=== PATIENT | female | born 1985 | race African-American/Black ===

== ENCOUNTER 2018-04-08 17:27 | Inpatient (IN) | payer OTHER ==
[2018-04-08 18:27] LABS: ADD MAN DIFF? NO
[2018-04-08 18:30] LABS: BASOPHILS % 0.2 % (0.0-2.0); EOSINOPHILS % 0.2 % (0.0-7.0); HEMATOCRIT 33.5 % (37.0-47.0); HEMOGLOBIN 11.1 g/dl (12.0-16.0); LYMPHOCYTES # 2.2 10^3/ul (0.8-2.9); LYMPHOCYTES % 38.9 % (15.0-51.0); MEAN CORPUSCULAR HGB CONC 33.1 g/dl (32.0-37.0); MEAN CORPUSCULAR VOLUME 81.5 fl (82.0-101.0); MEAN PLATELET VOLUME 10.5 fl (7.4-10.4); MONOCYTE # 0.8 10^3/ul (0.3-0.9); NEUTROPHIL # 2.7 10^3/ul (1.6-7.5); NEUTROPHILS % 46.5 % (39.0-77.0); PLATELET COUNT 229 10^3/UL (140-415); RED BLOOD COUNT 4.11 10^6/ul (4.20-5.40); RED CELL DISTRIBUTION WIDTH 12.9 % (11.5-14.5)
[2018-04-08 18:30] LABS: WHITE BLOOD COUNT 5.7 10^3/ul (4.8-10.8)
[2018-04-08 18:38] LABS: ADD UMIC YES; UR ASCORBIC ACID NEGATIVE (NEGATIVE); UR BILIRUBIN (Dip) NEGATIVE (NEGATIVE); UR BLOOD (Dip) 1+ mg/dL (NEGATIVE); UR CLARITY SLIGHTLY CLOUDY (CLEAR); UR COLOR YELLOW (YELLOW); UR GLUCOSE (Dip) NEGATIVE (NEGATIVE); UR KETONES (Dip) 1+ mg/dL (NEGATIVE); UR LEUKOCYTE ESTERASE (Dip) NEGATIVE Leu/ul (NEGATIVE); UR MUCUS FEW /HPF (NONE SEEN); UR NITRITE (Dip) NEGATIVE (NEGATIVE); UR RBC 2 /HPF (0-5); UR SPECIFIC GRAVITY (Dip) 1.021 (1.003-1.030); UR SQUAMOUS EPITHELIAL CELL FEW /HPF (FEW); UR TOTAL PROTEIN (Dip) NEGATIVE (NEGATIVE); UR UROBILINOGEN (Dip) NEGATIVE (NEGATIVE); UR WBC 1 /HPF (0-5)
[2018-04-08] MEDS: SODIUM CHLORIDE 0.9% 1L BAG IV* (18:39)
[2018-04-08 19:03] LABS: LACTIC ACID 1.4 mmol/L (0.5-2.0)
[2018-04-08 19:05] LABS: ALANINE AMINOTRANSFERASE 34 IU/L (13-69); ALBUMIN 3.7 g/dl (3.3-4.9); ALBUMIN/GLOBULIN RATIO 1.19; ALKALINE PHOSPHATASE 90 IU/L (42-121); ANION GAP 11 (8-16); ASPARTATE AMINO TRANSFERASE 22 IU/L (15-46); BILIRUBIN,INDIRECT 0.6 mg/dl (0-1.1); BILIRUBIN,TOTAL 0.6 mg/dl (0.2-1.3); BLOOD UREA NITROGEN 6 mg/dl (7-20); CALCIUM 9.7 mg/dl (8.4-10.2); CARBON DIOXIDE 22 mmol/L (21-31); CHLORIDE 110 mmol/L (97-110); CREATININE 0.47 mg/dl (0.44-1.00); GLUCOSE 97 mg/dl (70-220); POTASSIUM 4.4 mmol/L (3.5-5.1); SODIUM 139 mmol/L (135-144); TOTAL PROTEIN 6.8 g/dl (6.1-8.1)
[2018-04-08 19:09] LABS: INR 1.09; PROTIME 14.3 Sec (11.9-14.9); PT RATIO 1.1
[2018-04-08 19:18] LABS: TROPONIN-I < 0.010 ng/ml (0.000-0.120)
[2018-04-08 19:24] LABS: PARTIAL THROMBOPLASTIN TIME 28.1 Sec (25.0-35.0)
[2018-04-08 21:09] LABS: BENZODIAZEPINES Positive (NEGATIVE)
[2018-04-08 21:10] LABS: AMPHETAMINE/METHAMPHETAMINE Negative (NEGATIVE); BARBITURATES Negative (NEGATIVE); CANNABINOIDS Positive (NEGATIVE); COCAINE Negative (NEGATIVE); OPIATES Negative (NEGATIVE)
[2018-04-08] MEDS: ONDANSETRON 4 MG INJ IV ×2 (21:37→23:02)
[2018-04-08] MEDS ORDERED: DOCUSATE SODIUM 100 MG CAP PO (22:00)
[2018-04-08] MEDS ORDERED: ACETAMINOPHEN 325 MG TAB PO (22:00)
[2018-04-08] MEDS ORDERED: NACL 0.9% 3 ML SYG IV (22:00)
[2018-04-08] MEDS ORDERED: BISACODYL (EC) 5 MG TAB PO (22:00)
[2018-04-09 00:19] LABS: CREATINE KINASE 22 IU/L (23-200)
[2018-04-09 00:37] LABS: CK-MB < 0.22 ng/ml (0.0-2.4); TROPONIN-I < 0.010 ng/ml (0.000-0.120)
[2018-04-09] MEDS: METOCLOPRAMIDE 10 MG INJ IV ×3 (01:15→11:29)
[2018-04-09] MEDS ORDERED: ONDANSETRON 4 MG INJ IV (01:30)
[2018-04-09 07:51] LABS: ADD MAN DIFF? NO
[2018-04-09 07:56] LABS: BASOPHILS % 0.2 % (0.0-2.0); EOSINOPHILS % 0.7 % (0.0-7.0); HEMATOCRIT 29.9 % (37.0-47.0); HEMOGLOBIN 9.8 g/dl (12.0-16.0); LYMPHOCYTES # 2.2 10^3/ul (0.8-2.9); LYMPHOCYTES % 48.1 % (15.0-51.0); MEAN CORPUSCULAR HEMOGLOBIN 26.8 pg (29.0-33.0); MEAN CORPUSCULAR HGB CONC 32.8 g/dl (32.0-37.0); MEAN CORPUSCULAR VOLUME 81.9 fl (82.0-101.0); MEAN PLATELET VOLUME 10.6 fl (7.4-10.4); MONOCYTE # 0.7 10^3/ul (0.3-0.9); MONOCYTES % 15.2 % (0.0-11.0); NEUTROPHIL # 1.6 10^3/ul (1.6-7.5); NEUTROPHILS % 35.8 % (39.0-77.0); PLATELET COUNT 202 10^3/UL (140-415); RED BLOOD COUNT 3.65 10^6/ul (4.20-5.40); RED CELL DISTRIBUTION WIDTH 12.6 % (11.5-14.5)
[2018-04-09 07:56] LABS: WHITE BLOOD COUNT 4.6 10^3/ul (4.8-10.8)
[2018-04-09 08:13] LABS: HEMOGLOBIN A1C 5.1 % (0-5.9)
[2018-04-09 08:18] LABS: D-DIMER 262.82 ng/ml (<460)
[2018-04-09 08:19] LABS: ALANINE AMINOTRANSFERASE 30 IU/L (13-69); ALBUMIN 2.9 g/dl (3.3-4.9); ALBUMIN/GLOBULIN RATIO 1.03; ALKALINE PHOSPHATASE 68 IU/L (42-121); ANION GAP 8 (8-16); ASPARTATE AMINO TRANSFERASE 20 IU/L (15-46); BILIRUBIN,INDIRECT 0.5 mg/dl (0-1.1); BILIRUBIN,TOTAL 0.5 mg/dl (0.2-1.3); BLOOD UREA NITROGEN 7 mg/dl (7-20); CALCIUM 9.3 mg/dl (8.4-10.2); CARBON DIOXIDE 20 mmol/L (21-31); CHLORIDE 114 mmol/L (97-110); CHOL/HDL RATIO 2.9 RATIO; CHOLESTEROL 79 mg/dl (100-200); CREATININE 0.51 mg/dl (0.44-1.00); GLUCOSE 92 mg/dl (70-220); HDL CHOLESTEROL 27 mg/dl (34-82); LDL CHOLESTEROL,CALCULATED 38 mg/dl; MAGNESIUM 1.5 mg/dl (1.7-2.5); POTASSIUM 4.1 mmol/L (3.5-5.1); SODIUM 138 mmol/L (135-144); TOTAL PROTEIN 5.7 g/dl (6.1-8.1); TRIGLYCERIDES 70 mg/dl (0-149)
[2018-04-09 08:20] LABS: IRON 61 ug/dl (35-150)
[2018-04-09 08:23] LABS: CREATINE KINASE 23 IU/L (23-200)
[2018-04-09 08:29] LABS: % IRON SATURATION 21 % SAT (22-52); TOTAL IRON BINDING CAPACITY 292 ug/dl (241-421)
[2018-04-09 08:30] LABS: CK-MB < 0.22 ng/ml (0.0-2.4); TROPONIN-I < 0.010 ng/ml (0.000-0.120)
[2018-04-09 08:48] LABS: THYROID STIMULATING HORMONE < 0.015 MIU/L (0.465-4.680)
== END 2018-04-09 14:54 | disposition home or self-care (01) | DRG 780 ==
LOC: E/R 17:27 → TEL 21:41
DX: O47.02 False labor before 37 completed weeks of gestation, second trimester (principal); O20.9 Hemorrhage in early pregnancy, unspecified; O10.911 Unspecified pre-existing hypertension complicating pregnancy, first trimester; O99.321 Drug use complicating pregnancy, first trimester; R00.0 Tachycardia, unspecified; O21.9 Vomiting of pregnancy, unspecified; F12.90 Cannabis use, unspecified, uncomplicated; Z3A.01 Less than 8 weeks gestation of pregnancy
CPT/HCPCS: 36415; 76801; 76817; 80053; 80061; 80307; 81001; 81025; 82550; 82553; 83036; 83540; 83605; 83735; 84443; 84484; 84702; 85025; 85378; 85610; 85730; 86850; 86900; 86901; 87040; 87086; 93005; 93306; 93970; 96374; 96376; 99285-25

== ENCOUNTER 2018-04-17 17:56 | Emergency (ER) | payer OTHER ==
[2018-04-17] MEDS: SOD CHLORIDE 0.9% 1,000 ML IV ×2 (20:48→23:10)
[2018-04-17 21:01] LABS: ADD MAN DIFF? NO
[2018-04-17 21:06] LABS: WHITE BLOOD COUNT 6.6 10^3/ul (4.8-10.8)
[2018-04-17 21:06] LABS: BASOPHILS % 0.3 % (0.0-2.0); EOSINOPHILS % 0.2 % (0.0-7.0); HEMOGLOBIN 11.9 g/dl (12.0-16.0); LYMPHOCYTES # 2.5 10^3/ul (0.8-2.9); LYMPHOCYTES % 37.8 % (15.0-51.0); MEAN CORPUSCULAR HEMOGLOBIN 26.5 pg (29.0-33.0); MEAN CORPUSCULAR HGB CONC 33.1 g/dl (32.0-37.0); MEAN CORPUSCULAR VOLUME 80.2 fl (82.0-101.0); MEAN PLATELET VOLUME 10.6 fl (7.4-10.4); MONOCYTE # 0.7 10^3/ul (0.3-0.9); MONOCYTES % 10.9 % (0.0-11.0); NEUTROPHIL # 3.3 10^3/ul (1.6-7.5); NEUTROPHILS % 50.5 % (39.0-77.0); PLATELET COUNT 264 10^3/UL (140-415); RED BLOOD COUNT 4.49 10^6/ul (4.20-5.40); RED CELL DISTRIBUTION WIDTH 12.4 % (11.5-14.5)
[2018-04-17 21:28] LABS: ALANINE AMINOTRANSFERASE 31 IU/L (13-69); ALBUMIN 4.3 g/dl (3.3-4.9); ALBUMIN/GLOBULIN RATIO 1.07; ALKALINE PHOSPHATASE 108 IU/L (42-121); ANION GAP 16 (8-16); ASPARTATE AMINO TRANSFERASE 22 IU/L (15-46); BILIRUBIN,INDIRECT 0.8 mg/dl (0-1.1); BILIRUBIN,TOTAL 0.8 mg/dl (0.2-1.3); BLOOD UREA NITROGEN 9 mg/dl (7-20); CALCIUM 10.1 mg/dl (8.4-10.2); CARBON DIOXIDE 21 mmol/L (21-31); CHLORIDE 105 mmol/L (97-110); GLUCOSE 79 mg/dl (70-220); POTASSIUM 4.4 mmol/L (3.5-5.1); SODIUM 138 mmol/L (135-144); TOTAL PROTEIN 8.3 g/dl (6.1-8.1)
[2018-04-17 21:32] LABS: D-DIMER 348.96 ng/ml (<460)
[2018-04-17 21:48] LABS: TROPONIN-I < 0.012 ng/ml (0.000-0.120)
[2018-04-17 22:16] LABS: ADD UMIC YES; UR ASCORBIC ACID NEGATIVE (NEGATIVE); UR BILIRUBIN (Dip) NEGATIVE (NEGATIVE); UR BLOOD (Dip) 1+ mg/dL (NEGATIVE); UR CLARITY SLIGHTLY CLOUDY (CLEAR); UR COLOR YELLOW (YELLOW); UR GLUCOSE (Dip) NEGATIVE (NEGATIVE); UR KETONES (Dip) 1+ mg/dL (NEGATIVE); UR LEUKOCYTE ESTERASE (Dip) NEGATIVE Leu/ul (NEGATIVE); UR MUCUS MODERATE /HPF (NONE SEEN); UR NITRITE (Dip) NEGATIVE (NEGATIVE); UR RBC 8 /HPF (0-5); UR SPECIFIC GRAVITY (Dip) 1.027 (1.003-1.030); UR SQUAMOUS EPITHELIAL CELL FEW /HPF (FEW); UR TOTAL PROTEIN (Dip) 1+ mg/dl (NEGATIVE); UR UROBILINOGEN (Dip) NEGATIVE (NEGATIVE); UR WBC 4 /HPF (0-5)
[2018-04-17] MEDS: HYDROCODONE/APAP (5/325) TAB PO (23:02)
== END 2018-04-18 01:50 | disposition home or self-care (01) ==
LOC: FTE 04-18 01:50
DX: O99.89 Other specified diseases and conditions complicating pregnancy, childbirth and the puerperium (principal); R07.89 Other chest pain; Z3A.01 Less than 8 weeks gestation of pregnancy
CPT/HCPCS: 80053; 81001; 84484; 85025; 85378; 93005; 93970; 99285-25

== ENCOUNTER 2018-04-28 20:55 | Emergency (ER) | payer OTHER ==
[2018-04-28] MEDS: ACETAMINOPHEN 325 MG TAB PO (23:30)
[2018-04-28 23:34] LABS: ADD MAN DIFF? NO
[2018-04-28 23:36] LABS: WHITE BLOOD COUNT 7.1 10^3/ul (4.8-10.8)
[2018-04-28 23:36] LABS: BASOPHILS % 0.1 % (0.0-2.0); EOSINOPHILS % 0.3 % (0.0-7.0); HEMOGLOBIN 11.1 g/dl (12.0-16.0); LYMPHOCYTES # 2.5 10^3/ul (0.8-2.9); LYMPHOCYTES % 35.1 % (15.0-51.0); MEAN CORPUSCULAR HEMOGLOBIN 26.1 pg (29.0-33.0); MEAN CORPUSCULAR HGB CONC 32.6 g/dl (32.0-37.0); MONOCYTE # 0.8 10^3/ul (0.3-0.9); MONOCYTES % 11.5 % (0.0-11.0); NEUTROPHIL # 3.7 10^3/ul (1.6-7.5); NEUTROPHILS % 52.6 % (39.0-77.0); PLATELET COUNT 260 10^3/UL (140-415); RED BLOOD COUNT 4.25 10^6/ul (4.20-5.40); RED CELL DISTRIBUTION WIDTH 12.5 % (11.5-14.5)
[2018-04-28 23:42] LABS: ADD UMIC YES; UR ASCORBIC ACID NEGATIVE (NEGATIVE); UR BILIRUBIN (Dip) NEGATIVE (NEGATIVE); UR BLOOD (Dip) 1+ mg/dL (NEGATIVE); UR CLARITY SLIGHTLY CLOUDY (CLEAR); UR COLOR YELLOW (YELLOW); UR GLUCOSE (Dip) NEGATIVE (NEGATIVE); UR KETONES (Dip) TRACE mg/dL (NEGATIVE); UR LEUKOCYTE ESTERASE (Dip) NEGATIVE Leu/ul (NEGATIVE); UR MUCUS MODERATE /HPF (NONE SEEN); UR NITRITE (Dip) NEGATIVE (NEGATIVE); UR RBC 6 /HPF (0-5); UR SPECIFIC GRAVITY (Dip) 1.026 (1.003-1.030); UR SQUAMOUS EPITHELIAL CELL FEW /HPF (FEW); UR TOTAL PROTEIN (Dip) NEGATIVE (NEGATIVE); UR UROBILINOGEN (Dip) NEGATIVE (NEGATIVE); UR WBC 3 /HPF (0-5)
[2018-04-29 00:02] LABS: INR 1.04; PROTIME 13.7 Sec (11.9-14.9); PT RATIO 1.1
[2018-04-29 00:03] LABS: PARTIAL THROMBOPLASTIN TIME 28.1 Sec (25.0-35.0)
[2018-04-29 00:08] LABS: ALANINE AMINOTRANSFERASE 30 IU/L (13-69); ALBUMIN 3.9 g/dl (3.3-4.9); ALBUMIN/GLOBULIN RATIO 1.25; ALKALINE PHOSPHATASE 85 IU/L (42-121); ANION GAP 15 (8-16); ASPARTATE AMINO TRANSFERASE 19 IU/L (15-46); BILIRUBIN,INDIRECT 0.5 mg/dl (0-1.1); BILIRUBIN,TOTAL 0.5 mg/dl (0.2-1.3); BLOOD UREA NITROGEN 7 mg/dl (7-20); CALCIUM 9.8 mg/dl (8.4-10.2); CARBON DIOXIDE 23 mmol/L (21-31); CHLORIDE 102 mmol/L (97-110); CREATININE 0.47 mg/dl (0.44-1.00); GLUCOSE 90 mg/dl (70-220); POTASSIUM 4.1 mmol/L (3.5-5.1); SODIUM 136 mmol/L (135-144)
[2018-04-29] MEDS: ONDANSETRON (ODT) 4 MG TAB ODT (01:07)
== END 2018-04-29 01:38 | disposition home or self-care (01) ==
LOC: FTE 04-29 01:38
DX: O26.891 Other specified pregnancy related conditions, first trimester (principal); R10.30 Lower abdominal pain, unspecified; R10.2 Pelvic and perineal pain; J45.909 Unspecified asthma, uncomplicated; O99.511 Diseases of the respiratory system complicating pregnancy, first trimester; Z3A.09 9 weeks gestation of pregnancy
CPT/HCPCS: 36415; 76801; 80053; 81001; 84702; 85025; 85610; 85730; 86900; 86901; 99284-25

== ENCOUNTER 2018-05-12 01:42 | Emergency (ER) | payer OTHER ==
[2018-05-12] MEDS: ACETAMINOPHEN 325 MG TAB PO (04:05)
[2018-05-12 05:06] LABS: ADD UMIC YES; UR ASCORBIC ACID NEGATIVE (NEGATIVE); UR BILIRUBIN (Dip) NEGATIVE (NEGATIVE); UR BLOOD (Dip) 1+ mg/dL (NEGATIVE); UR CLARITY CLOUDY (CLEAR); UR COLOR YELLOW (YELLOW); UR GLUCOSE (Dip) NEGATIVE (NEGATIVE); UR KETONES (Dip) NEGATIVE (NEGATIVE); UR LEUKOCYTE ESTERASE (Dip) NEGATIVE Leu/ul (NEGATIVE); UR MUCUS MANY /HPF (NONE SEEN); UR NITRITE (Dip) NEGATIVE (NEGATIVE); UR RBC 7 /HPF (0-5); UR SPECIFIC GRAVITY (Dip) 1.025 (1.003-1.030); UR SQUAMOUS EPITHELIAL CELL MODERATE /HPF (FEW); UR TOTAL PROTEIN (Dip) 2+ mg/dl (NEGATIVE); UR UROBILINOGEN (Dip) NEGATIVE (NEGATIVE); UR WBC 6 /HPF (0-5)
== END 2018-05-12 07:03 | disposition home or self-care (01) ==
LOC: FTE 01:42
DX: O26.891 Other specified pregnancy related conditions, first trimester (principal); R10.2 Pelvic and perineal pain; O99.511 Diseases of the respiratory system complicating pregnancy, first trimester; J45.909 Unspecified asthma, uncomplicated; Z3A.12 12 weeks gestation of pregnancy
CPT/HCPCS: 76801; 81001; 99284-25

== ENCOUNTER 2018-09-14 20:25 | Outpatient (CLI) | payer OTHER ==
[2018-09-14 21:11] LABS: ADD UMIC NO; UR ASCORBIC ACID NEGATIVE (NEGATIVE); UR BILIRUBIN (Dip) NEGATIVE (NEGATIVE); UR BLOOD (Dip) NEGATIVE (NEGATIVE); UR CLARITY CLEAR (CLEAR); UR COLOR YELLOW (YELLOW); UR GLUCOSE (Dip) NEGATIVE (NEGATIVE); UR KETONES (Dip) NEGATIVE (NEGATIVE); UR LEUKOCYTE ESTERASE (Dip) NEGATIVE Leu/ul (NEGATIVE); UR NITRITE (Dip) NEGATIVE (NEGATIVE); UR SPECIFIC GRAVITY (Dip) 1.019 (1.003-1.030); UR TOTAL PROTEIN (Dip) NEGATIVE (NEGATIVE); UR UROBILINOGEN (Dip) 1+ mg/dL (NEGATIVE)
[2018-09-14 21:25] LABS: AMPHETAMINE/METHAMPHETAMINE Negative (NEGATIVE); BARBITURATES Negative (NEGATIVE); BENZODIAZEPINES Negative (NEGATIVE); CANNABINOIDS Positive (NEGATIVE); COCAINE Negative (NEGATIVE); OPIATES Negative (NEGATIVE)
== END 2018-09-15 01:23 | disposition home or self-care (01) ==
LOC: OBT 20:25 → L-D 20:26
DX: O26.893 Other specified pregnancy related conditions, third trimester (principal); R10.30 Lower abdominal pain, unspecified; O99.283 Endocrine, nutritional and metabolic diseases complicating pregnancy, third trimester; E05.90 Thyrotoxicosis, unspecified without thyrotoxic crisis or storm; Z3A.29 29 weeks gestation of pregnancy
CPT/HCPCS: 76815; 76818; 80307; 81003; 84443

== ENCOUNTER 2018-10-05 01:11 | Outpatient (CLI) | payer OTHER ==
[2018-10-05] MEDS: TERBUTALINE 1 MG/ML INJ SC (03:02)
[2018-10-05 03:26] LABS: ADD UMIC YES; UR ASCORBIC ACID NEGATIVE (NEGATIVE); UR BACTERIA FEW /HPF (NONE SEEN); UR BILIRUBIN (Dip) NEGATIVE (NEGATIVE); UR BLOOD (Dip) NEGATIVE (NEGATIVE); UR CLARITY SLIGHTLY CLOUDY (CLEAR); UR COLOR YELLOW (YELLOW); UR GLUCOSE (Dip) NEGATIVE (NEGATIVE); UR KETONES (Dip) NEGATIVE (NEGATIVE); UR LEUKOCYTE ESTERASE (Dip) NEGATIVE Leu/ul (NEGATIVE); UR MUCUS FEW /HPF (NONE SEEN); UR NITRITE (Dip) NEGATIVE (NEGATIVE); UR RBC 2 /HPF (0-5); UR SPECIFIC GRAVITY (Dip) 1.024 (1.003-1.030); UR SQUAMOUS EPITHELIAL CELL FEW /HPF (FEW); UR TOTAL PROTEIN (Dip) 1+ mg/dl (NEGATIVE); UR UROBILINOGEN (Dip) 1+ mg/dL (NEGATIVE); UR WBC 6 /HPF (0-5)
[2018-10-05 03:34] LABS: RUPTURE FETAL MEMBRANES NEGATIVE (NEGATIVE)
[2018-10-05 03:43] LABS: FREE T3 4.68 pg/ml (2.77-5.27); FREE T4 (FREE THYROXINE) 1.48 ng/dl (0.79-2.35)
== END 2018-10-05 05:55 | disposition home or self-care (01) ==
LOC: OBT 01:11 → L-D 01:11 → OBT 05:55
DX: O26.893 Other specified pregnancy related conditions, third trimester (principal); R10.2 Pelvic and perineal pain; O13.3 Gestational [pregnancy-induced] hypertension without significant proteinuria, third trimester; Z3A.32 32 weeks gestation of pregnancy
CPT/HCPCS: 76817; 76818; 81001; 84112; 84439; 84481; 87086; 96372

== ENCOUNTER 2018-10-14 01:18 | Emergency (ER) | payer OTHER | END 2018-10-14 04:48 | disposition home or self-care (01) | LOC: FTE 01:18 | DX: O99.89 Other specified diseases and conditions complicating pregnancy, childbirth and the puerperium (principal); R13.10 Dysphagia, unspecified; O99.513 Diseases of the respiratory system complicating pregnancy, third trimester; J45.909 Unspecified asthma, uncomplicated; Z3A.33 33 weeks gestation of pregnancy | CPT/HCPCS: 70360; 99283-25 ==

== ENCOUNTER 2018-10-14 01:45 | Outpatient (CLI) | payer OTHER | END 2018-10-14 02:34 | disposition home or self-care (01) | LOC: OBT 01:45 → L-D 01:45 → OBT 02:34 | DX: O26.893 Other specified pregnancy related conditions, third trimester (principal); J02.9 Acute pharyngitis, unspecified; Z3A.33 33 weeks gestation of pregnancy | CPT/HCPCS: Z7500 ==

== ENCOUNTER 2018-10-14 16:49 | Inpatient (IN) | payer OTHER ==
[2018-10-14 18:03] LABS: ADD UMIC YES; UR ASCORBIC ACID NEGATIVE (NEGATIVE); UR BACTERIA FEW /HPF (NONE SEEN); UR BILIRUBIN (Dip) NEGATIVE (NEGATIVE); UR BLOOD (Dip) NEGATIVE (NEGATIVE); UR CLARITY SLIGHTLY CLOUDY (CLEAR); UR COLOR YELLOW (YELLOW); UR GLUCOSE (Dip) NEGATIVE (NEGATIVE); UR KETONES (Dip) TRACE mg/dL (NEGATIVE); UR LEUKOCYTE ESTERASE (Dip) TRACE Leu/ul (NEGATIVE); UR NITRITE (Dip) NEGATIVE (NEGATIVE); UR RBC 1 /HPF (0-5); UR SPECIFIC GRAVITY (Dip) 1.014 (1.003-1.030); UR TOTAL PROTEIN (Dip) NEGATIVE (NEGATIVE); UR UROBILINOGEN (Dip) NEGATIVE (NEGATIVE); UR WBC 4 /HPF (0-5)
[2018-10-14 18:50] LABS: RUPTURE FETAL MEMBRANES NEGATIVE (NEGATIVE)
[2018-10-14] MEDS ORDERED: ACETAMINOPHEN 325 MG TAB PO (20:30)
[2018-10-14] MEDS: BETAMET NA PHOS/AC(6 MG/ML) 2 ML INJ SYG IM (22:45)
[2018-10-14 23:16] LABS: T4 (THYROXINE) 21.2 ug/dl (5.5-11.0)
[2018-10-14 23:16] LABS: FREE T3 6.35 pg/ml (2.77-5.27)
[2018-10-14 23:17] LABS: FREE T4 (FREE THYROXINE) 2.09 ng/dl (0.79-2.35)
[2018-10-14 23:36] LABS: THYROID STIMULATING HORMONE < 0.015 MIU/L (0.465-4.680)
[2018-10-15 07:23] LABS: AMPHETAMINE/METHAMPHETAMINE Negative (NEGATIVE); BARBITURATES Negative (NEGATIVE); BENZODIAZEPINES Negative (NEGATIVE); COCAINE Negative (NEGATIVE); OPIATES Negative (NEGATIVE)
[2018-10-15 07:29] LABS: CANNABINOIDS Positive (NEGATIVE)
[2018-10-15] MEDS ORDERED: TERBUTALINE 1 ML (08:12)
[2018-10-15] MEDS: BETAMET NA PHOS/AC(6 MG/ML) 2 ML INJ SYG IM ×2 (08:30→23:08)
[2018-10-15] MEDS: TERBUTALINE 1 MG/ML INJ SC (08:42)
[2018-10-15] MEDS: MAGNESIUM SULFATE 4 GM/100 ML 100 ML IVPB (08:58)
[2018-10-15 12:28] LABS: FREE T4 (FREE THYROXINE) 2.42 ng/dl (0.79-2.35)
[2018-10-15 12:48] LABS: THYROID STIMULATING HORMONE < 0.015 MIU/L (0.465-4.680)
[2018-10-15] MEDS: PRENATAL VITAMIN PO ×2 (19:28→19:35)
[2018-10-15] MEDS: DOCUSATE SODIUM 100 MG CAP PO (19:35)
[2018-10-15] MEDS: FERROUS SULFATE (EC) 325 MG TAB PO (19:35)
[2018-10-15] MEDS: LACTATED RINGER'S 1,000 ML IV (19:36)
[2018-10-15] MEDS: PROPYLTHIOURACIL 50 MG TAB PO (20:58)
[2018-10-16] MEDS: LACTATED RINGER'S 1,000 ML IV ×3 (02:26→18:20)
[2018-10-16] MEDS: PRENATAL VITAMIN PO (09:05)
[2018-10-16] MEDS: DOCUSATE SODIUM 100 MG CAP PO (09:05)
[2018-10-16] MEDS: PROPYLTHIOURACIL 50 MG TAB PO ×3 (09:06→21:21)
[2018-10-16] MEDS: FERROUS SULFATE (EC) 325 MG TAB PO (09:06)
[2018-10-17] MEDS: LACTATED RINGER'S 1,000 ML IV ×3 (02:29→18:04)
[2018-10-17] MEDS: FERROUS SULFATE (EC) 325 MG TAB PO (08:40)
[2018-10-17] MEDS: PRENATAL VITAMIN PO (08:40)
[2018-10-17] MEDS: DOCUSATE SODIUM 100 MG CAP PO (08:40)
[2018-10-17] MEDS: PROPYLTHIOURACIL 50 MG TAB PO ×3 (08:40→19:55)
[2018-10-18] MEDS: LACTATED RINGER'S 1,000 ML IV (01:48)
[2018-10-18] MEDS: PRENATAL VITAMIN PO (08:55)
[2018-10-18] MEDS: DOCUSATE SODIUM 100 MG CAP PO (08:55)
[2018-10-18] MEDS: PROPYLTHIOURACIL 50 MG TAB PO (08:56)
[2018-10-18] MEDS: FERROUS SULFATE (EC) 325 MG TAB PO (09:01)
[2018-10-18 11:31] LABS: ADD MAN DIFF? NO
[2018-10-18 11:34] LABS: BASOPHILS % 0.3 % (0.0-2.0); EOSINOPHILS % 0.3 % (0.0-7.0); HEMATOCRIT 32.2 % (37.0-47.0); HEMOGLOBIN 10.5 g/dl (12.0-16.0); LYMPHOCYTES # 2.7 10^3/ul (0.8-2.9); LYMPHOCYTES % 27.1 % (15.0-51.0); MEAN CORPUSCULAR HEMOGLOBIN 27.6 pg (29.0-33.0); MEAN CORPUSCULAR HGB CONC 32.6 g/dl (32.0-37.0); MEAN CORPUSCULAR VOLUME 84.5 fl (82.0-101.0); MONOCYTE # 0.9 10^3/ul (0.3-0.9); MONOCYTES % 9.1 % (0.0-11.0); NEUTROPHIL # 6.1 10^3/ul (1.6-7.5); NEUTROPHILS % 61.4 % (39.0-77.0); PLATELET COUNT 207 10^3/UL (140-415); RED BLOOD COUNT 3.81 10^6/ul (4.20-5.40); RED CELL DISTRIBUTION WIDTH 14.6 % (11.5-14.5)
[2018-10-18 11:34] LABS: WHITE BLOOD COUNT 9.9 10^3/ul (4.8-10.8)
[2018-10-18 11:56] LABS: ALANINE AMINOTRANSFERASE 15 IU/L (13-69); ALBUMIN 3.3 g/dl (3.3-4.9); ALBUMIN/GLOBULIN RATIO 1.13; ALKALINE PHOSPHATASE 271 IU/L (42-121); ANION GAP 10 (5-13); ASPARTATE AMINO TRANSFERASE 12 IU/L (15-46); BLOOD UREA NITROGEN 11 mg/dl (7-20); CALCIUM 9.6 mg/dl (8.4-10.2); CARBON DIOXIDE 26 mmol/L (21-31); CHLORIDE 103 mmol/L (97-110); CREATININE 0.52 mg/dl (0.44-1.00); Estimated GFR > 60 mL/min (>60); GLUCOSE 82 mg/dl (70-220); SODIUM 139 mmol/L (135-144); TOTAL PROTEIN 6.2 g/dl (6.1-8.1)
[2018-10-18 12:01] LABS: PROTIME 12.2 Sec (11.9-14.9)
[2018-10-18 12:03] LABS: PARTIAL THROMBOPLASTIN TIME 24.8 Sec (23.0-35.0)
[2018-10-19 11:26] LABS: THYROID MICROSOMAL ANTIBODY 2 IU/mL (<9)
== END 2018-10-18 11:22 | disposition home or self-care (01) | DRG 833 ==
LOC: L-D 10-16 00:32 → OBT 16:49 → L-D 16:51 → OBT 20:50 → L-D 20:50
PROVIDERS: Obstetrics & Gynecology
DX: O99.283 Endocrine, nutritional and metabolic diseases complicating pregnancy, third trimester (principal); O36.5930 Maternal care for other known or suspected poor fetal growth, third trimester, not applicable or unspecified; O60.14X0 Preterm labor third trimester with preterm delivery third trimester, not applicable or unspecified; O10.913 Unspecified pre-existing hypertension complicating pregnancy, third trimester; E05.00 Thyrotoxicosis with diffuse goiter without thyrotoxic crisis or storm; O99.513 Diseases of the respiratory system complicating pregnancy, third trimester; J45.909 Unspecified asthma, uncomplicated; O76 Abnormality in fetal heart rate and rhythm complicating labor and delivery; Z87.891 Personal history of nicotine dependence; Z3A.33 33 weeks gestation of pregnancy
CPT/HCPCS: 76815; 76817; 76818; 76820; 80053; 80307; 81001; 84112; 84436; 84439; 84443; 84481; 85025; 85610; 85730; 86376; 86900; 86901; 93005

== ENCOUNTER 2018-10-20 09:24 | Outpatient (CLI) | payer OTHER ==
[2018-10-20] MEDS: LACTATED RINGER'S 1,000 ML IV (10:17)
[2018-10-20] MEDS: PROPYLTHIOURACIL 50 MG TAB PO (10:42)
== END 2018-10-20 11:15 | disposition home or self-care (01) ==
LOC: OBT 09:24 → L-D 09:25 → OBT 11:15
DX: O99.283 Endocrine, nutritional and metabolic diseases complicating pregnancy, third trimester (principal); E03.9 Hypothyroidism, unspecified; O36.8330 Maternal care for abnormalities of the fetal heart rate or rhythm, third trimester, not applicable or unspecified; Z3A.34 34 weeks gestation of pregnancy
CPT/HCPCS: 76818; 96360

== ENCOUNTER 2018-10-20 11:13 | Emergency (ER) | payer OTHER | END 2018-10-20 12:02 | disposition home or self-care (01) | LOC: FTE 11:13 | DX: O99.283 Endocrine, nutritional and metabolic diseases complicating pregnancy, third trimester (principal); R00.0 Tachycardia, unspecified; O99.513 Diseases of the respiratory system complicating pregnancy, third trimester; Z3A.34 34 weeks gestation of pregnancy | CPT/HCPCS: 93005; 99283-25 ==

== ENCOUNTER 2018-10-27 17:43 | Emergency (ER) | payer OTHER ==
[2018-10-27 18:25] LABS: ADD MAN DIFF? NO
[2018-10-27 18:27] LABS: BASOPHILS % 0.5 % (0.0-2.0); EOSINOPHILS # 0.1 10^3/ul (0.0-0.5); EOSINOPHILS % 0.7 % (0.0-7.0); HEMOGLOBIN 11.7 g/dl (12.0-16.0); LYMPHOCYTES # 2.3 10^3/ul (0.8-2.9); LYMPHOCYTES % 26.9 % (15.0-51.0); MEAN CORPUSCULAR HEMOGLOBIN 27.7 pg (29.0-33.0); MEAN CORPUSCULAR HGB CONC 33.4 g/dl (32.0-37.0); MEAN CORPUSCULAR VOLUME 82.7 fl (82.0-101.0); MEAN PLATELET VOLUME 10.7 fl (7.4-10.4); MONOCYTE # 0.9 10^3/ul (0.3-0.9); MONOCYTES % 10.9 % (0.0-11.0); NEUTROPHIL # 5.1 10^3/ul (1.6-7.5); NEUTROPHILS % 59.8 % (39.0-77.0); PLATELET COUNT 219 10^3/UL (140-415); RED BLOOD COUNT 4.23 10^6/ul (4.20-5.40); RED CELL DISTRIBUTION WIDTH 14.2 % (11.5-14.5)
[2018-10-27 18:27] LABS: WHITE BLOOD COUNT 8.5 10^3/ul (4.8-10.8)
[2018-10-27] MEDS: BELLADONNA/PHENOBARBITAL TAB PO (18:28)
[2018-10-27] MEDS: LIDOCAINE/MYLANTA 40 ML BTL PO (18:28)
[2018-10-27 18:53] LABS: ALANINE AMINOTRANSFERASE 12 IU/L (13-69); ALBUMIN 3.9 g/dl (3.3-4.9); ALBUMIN/GLOBULIN RATIO 1.08; ALKALINE PHOSPHATASE 745 IU/L (42-121); ANION GAP 8 (5-13); ASPARTATE AMINO TRANSFERASE 23 IU/L (15-46); BILIRUBIN,INDIRECT 0.1 mg/dl (0-1.1); BILIRUBIN,TOTAL 0.1 mg/dl (0.2-1.3); BLOOD UREA NITROGEN 11 mg/dl (7-20); CALCIUM 10.1 mg/dl (8.4-10.2); CARBON DIOXIDE 21 mmol/L (21-31); CHLORIDE 107 mmol/L (97-110); CREATININE 0.51 mg/dl (0.44-1.00); Estimated GFR > 60 mL/min (>60); GLUCOSE 85 mg/dl (70-220); LIPASE 45 U/L (23-300); POTASSIUM 4.5 mmol/L (3.5-5.1); SODIUM 136 mmol/L (135-144); TOTAL PROTEIN 7.5 g/dl (6.1-8.1)
[2018-10-27 19:02] LABS: B-TYPE NATRIURETIC PEPTIDE < 11 PG/ML (0-125)
[2018-10-27 19:05] LABS: TROPONIN-I 0.036 ng/ml (0.000-0.120)
[2018-10-27] MEDS: ALBUTEROL 0.083% (NEB) 2.5 MG/3 ML AMP HHN (19:35)
[2018-10-27 19:41] LABS: Arterial Blood Gas Oxygen Sat 98.4 mmHG (95.0-98.0); Arterial COHb 0.1 % (0.0-3.0); Arterial HCO3 20.1 mmol/L (22.0-26.0); Arterial MetHb 0.3 % (0.0-1.5); MODE ROOM AIR; Site LB
[2018-10-27] MEDS: predniSONE 20 MG TAB PO (20:05)
[2018-10-27 20:41] LABS: ADD UMIC YES; UR ASCORBIC ACID NEGATIVE (NEGATIVE); UR BACTERIA FEW /HPF (NONE SEEN); UR BILIRUBIN (Dip) NEGATIVE (NEGATIVE); UR BLOOD (Dip) NEGATIVE (NEGATIVE); UR CLARITY SLIGHTLY CLOUDY (CLEAR); UR COLOR YELLOW (YELLOW); UR GLUCOSE (Dip) NEGATIVE (NEGATIVE); UR KETONES (Dip) NEGATIVE (NEGATIVE); UR LEUKOCYTE ESTERASE (Dip) 1+ Leu/ul (NEGATIVE); UR NITRITE (Dip) NEGATIVE (NEGATIVE); UR RBC 3 /HPF (0-5); UR SPECIFIC GRAVITY (Dip) 1.004 (1.003-1.030); UR SQUAMOUS EPITHELIAL CELL FEW /HPF (FEW); UR TOTAL PROTEIN (Dip) NEGATIVE (NEGATIVE); UR UROBILINOGEN (Dip) NEGATIVE (NEGATIVE); UR WBC 8 /HPF (0-5)
== END 2018-10-27 22:38 | disposition home or self-care (01) ==
LOC: E/R 17:43
DX: O99.89 Other specified diseases and conditions complicating pregnancy, childbirth and the puerperium (principal); R07.9 Chest pain, unspecified; O99.513 Diseases of the respiratory system complicating pregnancy, third trimester; O10.013 Pre-existing essential hypertension complicating pregnancy, third trimester; R06.02 Shortness of breath; Z3A.33 33 weeks gestation of pregnancy
CPT/HCPCS: 36415; 36600; 71045; 80053; 81001; 82803; 83690; 83880; 84484; 85025; 93005; 94664; 99285-25

== ENCOUNTER 2018-11-10 16:34 | Emergency (ER) | payer SELFPAY, OTHER | END 2018-11-10 17:46 | disposition left against medical advice (07) | LOC: FTE 17:46 | DX: Z53.21 Procedure and treatment not carried out due to patient leaving prior to being seen by health care provider (principal) ==

== ENCOUNTER 2018-11-10 17:26 | Outpatient (CLI) | payer OTHER ==
[2018-11-10] MEDS: ACETAMINOPHEN 500 MG TAB PO (18:19)
[2018-11-10 19:24] LABS: RUPTURE FETAL MEMBRANES NEGATIVE (NEGATIVE)
== END 2018-11-10 19:35 | disposition home or self-care (01) ==
LOC: OBT 17:26 → L-D 17:27 → OBT 19:35
DX: O62.9 Abnormality of forces of labor, unspecified (principal); Z3A.34 34 weeks gestation of pregnancy
CPT/HCPCS: 76818; 84112

== ENCOUNTER 2018-11-10 19:38 | Emergency (ER) | payer OTHER ==
[2018-11-10] MEDS ORDERED: BUPIVACAINE 0.25% (MPF) 10 ML 10 ML VIAL INJ (21:30)
[2018-11-10] MEDS: BUPIVACAINE 0.25% (MPF) 30 ML INJ INJ (21:49)
[2018-11-10 22:31] LABS: THYROID STIMULATING HORMONE < 0.015 MIU/L (0.465-4.680)
== END 2018-11-10 23:29 | disposition home or self-care (01) ==
LOC: FTE 19:38
DX: O26.893 Other specified pregnancy related conditions, third trimester (principal); O99.283 Endocrine, nutritional and metabolic diseases complicating pregnancy, third trimester; O99.52 Diseases of the respiratory system complicating childbirth; O10.013 Pre-existing essential hypertension complicating pregnancy, third trimester; E03.9 Hypothyroidism, unspecified; R51 Headache; Z3A.37 37 weeks gestation of pregnancy
CPT/HCPCS: 84443; 99283

== ENCOUNTER 2018-11-21 19:03 | Inpatient (IN) | payer OTHER ==
[2018-11-21 20:44] LABS: RUPTURE FETAL MEMBRANES NEGATIVE (NEGATIVE)
[2018-11-21] MEDS ORDERED: LACTATED RINGER'S 1,000 ML IV (21:40)
[2018-11-21] MEDS ORDERED: LIDOCAINE 1% (MPF) 30 ML INJ INJ (22:00)
[2018-11-21] MEDS ORDERED: ALBUTEROL HFA 8 GM INHALER INH (22:00)
[2018-11-21] MEDS ORDERED: CARBOPROST 250 MCG INJ IM (22:00)
[2018-11-21] MEDS ORDERED: BUTORPHANOL 2 MG INJ IV (22:00)
[2018-11-21] MEDS ORDERED: METHYLERGONOVINE 0.2 MG INJ IM (22:00)
[2018-11-21] MEDS ORDERED: BUTORPHANOL 1 MG INJ IV (22:00)
[2018-11-21] MEDS ORDERED: IBUPROFEN 600 MG TAB PO (22:00)
[2018-11-21] MEDS ORDERED: OXYTOCIN 30 UNITS/LR 500 ML IV ×2 (22:00)
[2018-11-21] MEDS ORDERED: MISOPROSTOL 200 MCG TAB PR (22:00)
[2018-11-21] MEDS: LACTATED RINGER'S 1,000 ML IV (22:07)
[2018-11-21 22:34] LABS: ADD MAN DIFF? NO
[2018-11-21 22:37] LABS: BASOPHILS % 0.4 % (0.0-2.0); EOSINOPHILS # 0.1 10^3/ul (0.0-0.5); EOSINOPHILS % 0.7 % (0.0-7.0); HEMATOCRIT 34.9 % (37.0-47.0); HEMOGLOBIN 11.9 g/dl (12.0-16.0); LYMPHOCYTES # 2.9 10^3/ul (0.8-2.9); LYMPHOCYTES % 35.1 % (15.0-51.0); MEAN CORPUSCULAR HEMOGLOBIN 28.7 pg (29.0-33.0); MEAN CORPUSCULAR HGB CONC 34.1 g/dl (32.0-37.0); MEAN CORPUSCULAR VOLUME 84.3 fl (82.0-101.0); MEAN PLATELET VOLUME 10.6 fl (7.4-10.4); MONOCYTE # 0.7 10^3/ul (0.3-0.9); MONOCYTES % 8.8 % (0.0-11.0); NEUTROPHIL # 4.4 10^3/ul (1.6-7.5); PLATELET COUNT 197 10^3/UL (140-415); RED BLOOD COUNT 4.14 10^6/ul (4.20-5.40)
[2018-11-21 22:37] LABS: WHITE BLOOD COUNT 8.1 10^3/ul (4.8-10.8)
[2018-11-21] MEDS: AMPICILLIN 2 GM/NS (PMX) 100 ML IV (22:41)
[2018-11-21] MEDS: OXYTOCIN 30 UNITS/LR 500 ML IV (22:43)
[2018-11-21 22:55] LABS: INR 0.95; PROTIME 12.8 Sec (11.9-14.9)
[2018-11-21 23:02] LABS: PARTIAL THROMBOPLASTIN TIME 28.6 Sec (23.0-35.0)
[2018-11-21] MEDS: PROPYLTHIOURACIL 50 MG TAB PO (23:02)
[2018-11-21 23:10] LABS: BARBITURATES Negative (NEGATIVE); BENZODIAZEPINES Negative (NEGATIVE); CANNABINOIDS Negative (NEGATIVE); COCAINE Negative (NEGATIVE); OPIATES Negative (NEGATIVE)
[2018-11-21 23:30] LABS: HEPATITIS B SURFACE ANTIGEN NEGATIVE (NEGATIVE)
[2018-11-21 23:51] LABS: AMPHETAMINE/METHAMPHETAMINE Negative (NEGATIVE)
[2018-11-22] MEDS: AMPICILLIN 1 GM/NS (PMX) 50 ML IV ×5 (02:41→18:04)
[2018-11-22] MEDS: LACTATED RINGER'S 1,000 ML IV ×4 (04:17→18:03)
[2018-11-22] MEDS: PROPYLTHIOURACIL 50 MG TAB PO ×5 (09:00→22:43)
[2018-11-22] MEDS ORDERED: FENTAnyl 2MCG/ML-ROPIV 0.2% 100 ML (10:16)
[2018-11-22] MEDS ORDERED: NALOXONE (0.4 MG/ML) INJ IV (10:30)
[2018-11-22] MEDS ORDERED: DIPHENHYDRAMINE 50 MG INJ IV (10:30)
[2018-11-22] MEDS ORDERED: ONDANSETRON 4 MG INJ IV (10:30)
[2018-11-22] MEDS: FENTAnyl 2MCG/ML-ROPIV 0.2% 100 ML BAG EPI (17:20)
[2018-11-22] MEDS: OXYTOCIN 30 UNITS/LR 500 ML IV (19:29)
[2018-11-22 20:46] LABS: RAPID PLASMA REAGIN NONREACTIVE (NR)
[2018-11-22] MEDS: LACTATED RINGER'S 1,000 ML IV* (21:57)
[2018-11-22] MEDS ORDERED: LANOLIN HPA 1 PKT TOP (22:00)
[2018-11-22] MEDS ORDERED: MISOPROSTOL 200 MCG TAB PR (22:00)
[2018-11-22] MEDS ORDERED: OXYCODONE/ASPIRIN (4.88/325) TAB PO (22:00)
[2018-11-22] MEDS ORDERED: ZOLPIDEM 5 MG TAB PO (22:00)
[2018-11-22] MEDS ORDERED: OXYTOCIN 30 UNITS/LR 500 ML IV (22:00)
[2018-11-22] MEDS ORDERED: METHYLERGONOVINE 0.2 MG INJ IM (22:00)
[2018-11-22] MEDS ORDERED: CARBOPROST 250 MCG INJ IM (22:00)
[2018-11-22] MEDS: BENZOCAINE 20% 56 ML SPRAY TOP (22:32)
[2018-11-22] MEDS: SENNA/DOCUSATE NA (8.6MG/50MG) TAB PO (22:32)
[2018-11-22] MEDS: WITCH HAZEL/GLYCERIN PAD PR (22:33)
[2018-11-22] MEDS: OXYCODONE/ASPIRIN (4.88/325) TAB PO (22:44)
[2018-11-22] MEDS ORDERED: PROPYLTHIOURACIL 50 MG TAB PO (23:00)
[2018-11-22] MEDS: IBUPROFEN 600 MG TAB PO (23:28)
[2018-11-23] MEDS: OXYCODONE/ASPIRIN (4.88/325) TAB PO ×3 (04:38→20:52)
[2018-11-23] MEDS: IBUPROFEN 600 MG TAB PO ×3 (05:20→17:27)
[2018-11-23] MEDS: LACTATED RINGER'S 1,000 ML IV* (05:57)
[2018-11-23 07:25] LABS: ADD MAN DIFF? NO
[2018-11-23 07:29] LABS: BASOPHILS % 0.2 % (0.0-2.0); EOSINOPHILS # 0.1 10^3/ul (0.0-0.5); EOSINOPHILS % 0.5 % (0.0-7.0); HEMATOCRIT 30.7 % (37.0-47.0); HEMOGLOBIN 10.2 g/dl (12.0-16.0); LYMPHOCYTES # 2.9 10^3/ul (0.8-2.9); LYMPHOCYTES % 25.3 % (15.0-51.0); MEAN CORPUSCULAR HEMOGLOBIN 28.5 pg (29.0-33.0); MEAN CORPUSCULAR HGB CONC 33.2 g/dl (32.0-37.0); MEAN CORPUSCULAR VOLUME 85.8 fl (82.0-101.0); MONOCYTE # 1.4 10^3/ul (0.3-0.9); MONOCYTES % 12.4 % (0.0-11.0); NEUTROPHIL # 7.1 10^3/ul (1.6-7.5); PLATELET COUNT 176 10^3/UL (140-415); RED BLOOD COUNT 3.58 10^6/ul (4.20-5.40); RED CELL DISTRIBUTION WIDTH 14.7 % (11.5-14.5)
[2018-11-23 07:29] LABS: WHITE BLOOD COUNT 11.6 10^3/ul (4.8-10.8)
[2018-11-23 07:52] LABS: ALANINE AMINOTRANSFERASE 16 IU/L (13-69); ALBUMIN 2.9 g/dl (3.3-4.9); ALBUMIN/GLOBULIN RATIO 0.93; ALKALINE PHOSPHATASE 517 IU/L (42-121); ANION GAP 11 (5-13); ASPARTATE AMINO TRANSFERASE 19 IU/L (15-46); BILIRUBIN,INDIRECT 0.4 mg/dl (0-1.1); BILIRUBIN,TOTAL 0.4 mg/dl (0.2-1.3); BLOOD UREA NITROGEN 8 mg/dl (7-20); CALCIUM 9.1 mg/dl (8.4-10.2); CARBON DIOXIDE 24 mmol/L (21-31); CHLORIDE 104 mmol/L (97-110); CREATININE 0.63 mg/dl (0.44-1.00); Estimated GFR > 60 mL/min (>60); GLUCOSE 78 mg/dl (70-220); POTASSIUM 4.2 mmol/L (3.5-5.1); SODIUM 139 mmol/L (135-144)
[2018-11-23 08:09] LABS: FREE T3 2.46 pg/ml (2.77-5.27)
[2018-11-23 08:09] LABS: FREE T4 (FREE THYROXINE) 1.13 ng/dl (0.79-2.35)
[2018-11-23 08:29] LABS: THYROID STIMULATING HORMONE < 0.015 MIU/L (0.465-4.680)
[2018-11-23] MEDS: PROPYLTHIOURACIL 50 MG TAB PO ×3 (09:13→20:52)
[2018-11-23] MEDS: SENNA/DOCUSATE NA (8.6MG/50MG) TAB PO ×2 (09:13→20:52)
[2018-11-23] MEDS: DIPHTH/TET/ACEL PERTUSS (ADULT) 0.5 ML VIAL IM* (11:33)
[2018-11-24] MEDS: IBUPROFEN 600 MG TAB PO ×3 (00:11→11:15)
[2018-11-24] MEDS: PROPYLTHIOURACIL 50 MG TAB PO ×2 (09:17→12:11)
[2018-11-24] MEDS: SENNA/DOCUSATE NA (8.6MG/50MG) TAB PO (09:18)
== END 2018-11-24 13:32 | disposition home or self-care (01) | DRG 807 ==
LOC: OBT 19:03 → PP1 11-22 20:49 → L-D 19:03 → OBT 21:25 → L-D 21:25
PROC: 10E0XZZ Delivery of Products of Conception, External Approach (ICD-10-PCS; principal; 2018-11-22)
PROC: 3E033VJ Introduction of Other Hormone into Peripheral Vein, Percutaneous Approach (ICD-10-PCS; 2018-11-22)
DX: O99.284 Endocrine, nutritional and metabolic diseases complicating childbirth (principal); Z37.0 Single live birth; O69.81X0 Labor and delivery complicated by cord around neck, without compression, not applicable or unspecified; Z3A.39 39 weeks gestation of pregnancy
CPT/HCPCS: 62319; 80053; 80307; 84112; 84439; 84443; 84481; 85025; 85610; 85730; 86592; 86850; 86900; 86901; 87340; 90686

== ENCOUNTER 2019-04-05 19:33 | Emergency (ER) | payer OTHER ==
[2019-04-05] MEDS: IBUPROFEN 600 MG TAB PO (21:07)
[2019-04-05] MEDS: OXYCODONE/ACETAMINOPHEN (5/325) TAB PO (21:11)
[2019-04-05 22:58] LABS: ADD MAN DIFF? NO
[2019-04-05 22:59] LABS: WHITE BLOOD COUNT 6.9 10^3/ul (4.8-10.8)
[2019-04-05 22:59] LABS: BASOPHILS % 0.1 % (0.0-2.0); EOSINOPHILS % 0.1 % (0.0-7.0); HEMATOCRIT 35.7 % (37.0-47.0); HEMOGLOBIN 11.7 g/dl (12.0-16.0); LYMPHOCYTES % 14.6 % (15.0-51.0); MEAN CORPUSCULAR HEMOGLOBIN 26.6 pg (29.0-33.0); MEAN CORPUSCULAR HGB CONC 32.8 g/dl (32.0-37.0); MEAN CORPUSCULAR VOLUME 81.1 fl (82.0-101.0); MEAN PLATELET VOLUME 9.5 fl (7.4-10.4); MONOCYTE # 0.3 10^3/ul (0.3-0.9); MONOCYTES % 4.3 % (0.0-11.0); NEUTROPHIL # 5.6 10^3/ul (1.6-7.5); NEUTROPHILS % 80.6 % (39.0-77.0); PLATELET COUNT 214 10^3/UL (140-415); RED CELL DISTRIBUTION WIDTH 12.2 % (11.5-14.5)
[2019-04-05 23:19] LABS: ALANINE AMINOTRANSFERASE 43 IU/L (13-69); ALBUMIN 4.1 g/dl (3.3-4.9); ALBUMIN/GLOBULIN RATIO 1.28; ALKALINE PHOSPHATASE 84 IU/L (42-121); ANION GAP 9 (5-13); ASPARTATE AMINO TRANSFERASE 26 IU/L (15-46); BILIRUBIN,INDIRECT 0.8 mg/dl (0-1.1); BILIRUBIN,TOTAL 0.8 mg/dl (0.2-1.3); BLOOD UREA NITROGEN 6 mg/dl (7-20); CALCIUM 9.8 mg/dl (8.4-10.2); CARBON DIOXIDE 21 mmol/L (21-31); CHLORIDE 112 mmol/L (97-110); CREATININE 0.55 mg/dl (0.44-1.00); Estimated GFR > 60 mL/min (>60); GLUCOSE 95 mg/dl (70-220); LIPASE 30 U/L (23-300); POTASSIUM 4.2 mmol/L (3.5-5.1); SODIUM 142 mmol/L (135-144); TOTAL PROTEIN 7.3 g/dl (6.1-8.1)
[2019-04-06] MEDS: SOD CHLORIDE 0.9% 500 ML IV (00:18)
[2019-04-06] MEDS: PIPER-TAZO 3.375 GM IV (PMX) 100 ML IVPB (00:18)
[2019-04-06] MEDS: ONDANSETRON 4 MG INJ IV (00:50)
[2019-04-06] MEDS: morphine 4 MG/ML VIAL IV (00:50)
[2019-04-06 01:40] LABS: ADD UMIC YES; UR AMORPHOUS CRYSTAL MANY /HPF (NONE SEEN); UR ASCORBIC ACID NEGATIVE (NEGATIVE); UR BACTERIA FEW /HPF (NONE SEEN); UR BILIRUBIN (Dip) NEGATIVE (NEGATIVE); UR BLOOD (Dip) NEGATIVE (NEGATIVE); UR CLARITY TURBID (CLEAR); UR COLOR YELLOW (YELLOW); UR GLUCOSE (Dip) NEGATIVE (NEGATIVE); UR KETONES (Dip) 1+ mg/dL (NEGATIVE); UR LEUKOCYTE ESTERASE (Dip) NEGATIVE Leu/ul (NEGATIVE); UR MUCUS FEW /HPF (NONE SEEN); UR NITRITE (Dip) NEGATIVE (NEGATIVE); UR RBC 1 /HPF (0-5); UR SPECIFIC GRAVITY (Dip) 1.032 (1.003-1.030); UR SQUAMOUS EPITHELIAL CELL FEW /HPF (FEW); UR TOTAL PROTEIN (Dip) 1+ mg/dl (NEGATIVE); UR UROBILINOGEN (Dip) NEGATIVE (NEGATIVE); UR WBC 1 /HPF (0-5)
== END 2019-04-06 04:21 | disposition short-term general hospital (02) ==
LOC: E/R 19:33
DX: H05.20 Unspecified exophthalmos (principal); I10 Essential (primary) hypertension; J45.909 Unspecified asthma, uncomplicated; R51 Headache; R40.2142 Coma scale, eyes open, spontaneous, at arrival to emergency department; R40.2362 Coma scale, best motor response, obeys commands, at arrival to emergency department; R40.2252 Coma scale, best verbal response, oriented, at arrival to emergency department
CPT/HCPCS: 36415; 70450; 70486; 80053; 81001; 81025; 83690; 84703; 85025; 96374; 96375; 99285-25

== ENCOUNTER 2019-07-06 11:53 | Emergency (ER) | payer OTHER ==
[2019-07-06] MEDS: SOD CHLORIDE 0.9% 1,000 ML IV (12:58)
[2019-07-06 13:01] LABS: ADD MAN DIFF? NO
[2019-07-06 13:08] LABS: WHITE BLOOD COUNT 5.3 10^3/ul (4.8-10.8)
[2019-07-06 13:08] LABS: HEMATOCRIT 37.2 % (37.0-47.0); HEMOGLOBIN 12.2 g/dl (12.0-16.0); LYMPHOCYTES # 2.3 10^3/ul (0.8-2.9); MEAN CORPUSCULAR HGB CONC 32.8 g/dl (32.0-37.0); MEAN CORPUSCULAR VOLUME 79.1 fl (82.0-101.0); MEAN PLATELET VOLUME 10.4 fl (7.4-10.4); MONOCYTE # 0.8 10^3/ul (0.3-0.9); MONOCYTES % 15.1 % (0.0-11.0); NEUTROPHIL # 2.2 10^3/ul (1.6-7.5); NEUTROPHILS % 41.7 % (39.0-77.0); PLATELET COUNT 220 10^3/UL (140-415); RED CELL DISTRIBUTION WIDTH 12.8 % (11.5-14.5)
[2019-07-06 13:14] LABS: ADD UMIC YES; UR ASCORBIC ACID NEGATIVE (NEGATIVE); UR BACTERIA FEW /HPF (NONE SEEN); UR BILIRUBIN (Dip) NEGATIVE (NEGATIVE); UR BLOOD (Dip) 1+ mg/dL (NEGATIVE); UR CLARITY SLIGHTLY CLOUDY (CLEAR); UR COLOR AMBER (YELLOW); UR GLUCOSE (Dip) NEGATIVE (NEGATIVE); UR KETONES (Dip) TRACE mg/dL (NEGATIVE); UR LEUKOCYTE ESTERASE (Dip) NEGATIVE Leu/ul (NEGATIVE); UR MUCUS MANY /HPF (NONE SEEN); UR NITRITE (Dip) NEGATIVE (NEGATIVE); UR RBC 7 /HPF (0-5); UR SPECIFIC GRAVITY (Dip) 1.029 (1.003-1.030); UR SQUAMOUS EPITHELIAL CELL FEW /HPF (FEW); UR TOTAL PROTEIN (Dip) 1+ mg/dl (NEGATIVE); UR UROBILINOGEN (Dip) 2+ mg/dL (NEGATIVE); UR WBC 8 /HPF (0-5)
[2019-07-06 13:28] LABS: ANION GAP 9 (5-13); BLOOD UREA NITROGEN 11 mg/dl (7-20); CALCIUM 9.9 mg/dl (8.4-10.2); CARBON DIOXIDE 22 mmol/L (21-31); CHLORIDE 104 mmol/L (97-110); CREATININE 0.51 mg/dl (0.44-1.00); Estimated GFR > 60 mL/min (>60); GLUCOSE 88 mg/dl (70-220); POTASSIUM 4.2 mmol/L (3.5-5.1); SODIUM 135 mmol/L (135-144)
[2019-07-06 13:45] LABS: FREE T4 (FREE THYROXINE) 5.36 ng/dl (0.79-2.35)
[2019-07-06 14:01] LABS: THYROID STIMULATING HORMONE < 0.015 MIU/L (0.465-4.680)
== END 2019-07-06 19:28 | disposition home or self-care (01) ==
LOC: E/R 11:53
DX: O99.281 Endocrine, nutritional and metabolic diseases complicating pregnancy, first trimester (principal); E05.90 Thyrotoxicosis, unspecified without thyrotoxic crisis or storm; J45.909 Unspecified asthma, uncomplicated; O99.511 Diseases of the respiratory system complicating pregnancy, first trimester; R00.0 Tachycardia, unspecified; Z3A.12 12 weeks gestation of pregnancy
CPT/HCPCS: 36415; 80048; 81001; 82962; 84439; 84443; 85025; 93005; 99284-25